=== PATIENT | male | born 1980 | race Two or more races ===

== ENCOUNTER → 2020-05-26 | Day surgery (SDC) | payer BC ==
[~2020-05-26] VITALS: Ht 175.3 cm; Wt 81.6 kg
[2020-05-26] VITALS (8 sets, daily range): BP systolic 116–153; BP diastolic 3–99
[~2020-05-26] MED LIST: Acetaminophen (Non formulary) 100 ML IV ONE; Atropine Sulfate 0.4mg/ml inj IVP PRN; Bacitracin Oint 15gm Tube TOPIC ONE; Betadine 10% Oint 30gm TOPIC ONE; Cocaine HCl 4% 4ml vial TOPIC ONE; DiphenhydrAMINE 50mg/ml Inj IVP PRN; Glycopyrrolate 0.2mg/ml 1ml Vial ONE; HYDROcodone/Acetamin 5/325 tab ORAL PRN; HYDROcodone/Acetamin 7.5/325 tab ORAL PRN; Hydromorphone 0.5mg/0.5ml inj IVP PRN; Kenalog-40 1ml Vial ONE; Ketorolac 30mg Inj IV PRN; LEXAPRO10 MG ORAL; LORazepam Inj 2mg/ml 1ml IV PRN; LR 1000ml 1,000 ML IVLG SCH; LR 1000ml ONE; Labetalol 5mg/ml 20ml vial IV PRN; Lidocaine 1% 10mg/ml/EPI 0.01mg/ml 30ml INJ ONE; Lidocaine 1% MPF 10mg/ml 5ml ONE; Lidocaine 1% Plain 30 ml INJ ONE; METOPROLOL SUCC50 MG ORAL; Meperidine 25mg/1ml Inj (FOR RIGORS ONLY) IV PRN; Metoclopramide 10mg/2ml Inj IVP PRN; Midazolam 2mg/2ml Inj IVP PRN; NS Irrig 1000ml IRRIG ONE; Neostigmine 1mg/ml 10ml Inj ONE; OMEPRAZOLE20 M2 ORAL; Oxymetazoline 0.05% Na Spray 30ml NASAL ONE; Rocuronium Bromide 50mg/5ml Inj IV ONE; Sodium Chloride 10ml vial INJ ONE; Sterile Water Irrig 1000ml IRRIG ONE; ceFAZolin sod 1 GM in NS 55 ML IVPB ONE; fentaNYL 100 mcg/2 mL IV ONE; fentaNYL 100 mcg/2 mL IV PRN; oxyCODONE HCL/Acetaminophen 5/325mg ORAL PRN; propofoL 1,000mg/100ml IV ONE
--- NOTE | 2020-05-26 10:53 | Pre-Procedure Note/Attestation ---
Pre-Procedure Note/Attestation Complete Prior to Procedure Planned Procedure: not applicable Procedure Narrative: nasal obstruction unresponsive to medication Indications for Procedure Pre-Operative Diagnosis: septal deviation, bilateral hypertrophied inferior turbinates, collapsed left internal valve Attestation I attest that I discussed the nature of the procedure; its benefits; risks and complications; and alternatives (and the risks and benefits of such alternatives), prior to the procedure, with the patient (or the patient's legal sales representative jewelry). I attest that, if there was a reasonable possibility of needing a blood transfusion, the patient (or the patient's legal sales representative jewelry) was given the [facility] standardized written summary, pursuant to the Faheem Emlyn Blood Safety Act ([place] Health and Safety Code # 1645, as amended). I attest that I re-evaluated the patient just prior to the surgery and that there has been no change in the patient's H&P, except as documented below: Satya Alexandra MD May 26, 2020 10:53
--- NOTE | 2020-05-26 11:41 | Anethesia Preoperative Eval ---
Anesthesia Pre-op PMH/ROS General Date of Evaluation: May 26, 2020 Time of Evaluation: 11:39 Anesthesiologist: Melodie ASA Score: ASA 2 Mallampati Score Class I : Soft palate, uvula, fauces, pillars visible Class II: Soft palate, uvula, fauces visible Class III: Soft palate, base of uvula visible Class IV: Only hard plate visible Mallampati Classification: Class I Surgeon: Ibrahima Diagnosis: Nasal Deformity Surgical Procedure: Septoplasty, SMR Turbinates Anesthesia History: none Family History: no anesthesia problems Allergies: Coded Allergies: No Known Allergies (Unverified , 05/20/20) Medications: see eMAR Patient NPO?: Yes Past Medical History Cardiovascular: Reports: HTN Gastrointestinal/Genitourinary: Reports: GERD Neurologic/Psychiatric: Reports: depression/anxiety PSxH Narrative: Septoplasty 2015 Anesthesia Pre-op Phys. Exam Physician Exam Last Vital Signs Date Time Temp Pulse Resp B/P (MAP) Pulse Ox O2 Delivery O2 Flow Rate FiO2 05/26/20 10:10 98.4 53 18 116/74 97 Room Air Constitutional: NAD Neurologic: CN 2-12 intact Cardiovascular: RRR Respiratory: CTA Gastrointestinal: S/NT/ND Airway Exam Mallampati Score: Class I MO: full ROM: full Teeth: intact Anesthesia Pre-op A/P Risk Assessment & Plan Assessment: ASA 2 Plan: GA, SED, GlideScope Status Change Before Surgery: No Pre-Antibiotics Dru Gram Ancef IV Given Within 1 Hr of Incision: Yes Time Given: 11:51 Van Sewell MD May 26, 2020 11:41
--- NOTE | 2020-05-26 12:36 | Immediate Post-Op Evaluation ---
Immediate Post-Op Evalulation Immediate Post-Op Evalulation Procedure: Septoplasty, SMR Turbinates Date of Evaluation: May 26, 2020 Time of Evaluation: 14:27 IV Fluids: 800 LR Blood Products: 0 Estimated Blood Loss: 50 Urinary Output: 0 Blood Pressure Systolic: 153 Blood Pressure Diastolic: 99 Pulse Rate: 69 Respiratory Rate: 16 O2 Sat by Pulse Oximetry: 100 Temperature (Fahrenheit): 98.1 Pain Score (1-10): 2 Nausea: No Vomiting: No Complications 0 Patient Status: awake, reacts, patent, extubated, none Hydration Status: adequate Dru Gram Ancef IV Given Within 1 Hr of Incision: Yes Time Given: 11:51 Van Sewell MD May 26, 2020 12:36
--- NOTE | 2020-05-26 12:37 | 48 Hour Post Anesthesia Eval ---
Post Anesthesia Evaluation Procedure: Septoplasty, SMR Turbinates Date of Evaluation: May 26, 2020 Time of Evaluation: 16:43 Blood Pressure Systolic: 119 0: 68 Pulse Rate: 54 Respiratory Rate: 18 Temperature (Fahrenheit): 98.2 O2 Sat by Pulse Oximetry: 100 Airway: patent Nausea: No Vomiting: No Pain Intensity: 2 Hydration Status: adequate Cardiopulmonary Status: Stable Mental Status/LOC: patient returned to baseline Follow-up Care/Observations: 0 Post-Anesthesia Complications: 0 Follow-up care needed: ready to discharge Van Sewell MD May 26, 2020 12:37
--- NOTE | 2020-05-26 14:14 | Brief Operative Note ---
Immediate Post Operative Note Operative Note Pre-op Diagnosis: septal deviation, bilateral hypertrophied inferior turbinates, collapsed left internal valve Procedure: septoplasty, bilateral inferior turbinectomies with intramural coagulation, reconstruction of collapsed left internal valve Post-op Diagnosis: same as pre-op Surgeon: Satya Alexandra M.D. Anesthesiologist: Paco Anesthesia: general Specimen: yes - septum Complications: none Condition: stable Fluids: ringers lactate Estimated Blood Loss: minimal Drains: none Packing: [email or web address] Implant(s) used?: No Satya Alexandra MD May 26, 2020 14:14
--- NOTE | 2020-05-27 09:15 | Operative Note - Dictated ---
DATE OF OPERATION: 05/26/2020 SURGEON: Satya Alexandra MD ANESTHESIOLOGIST: Van Sewell MD ANESTHESIA: General. PREOPERATIVE DIAGNOSES: 1. Septal deviation. 2. Bilateral hypertrophied inferior turbinates. 3. Collapsed left internal valve. POSTOPERATIVE DIAGNOSES: 1. Septal deviation. 2. Bilateral hypertrophied inferior turbinates. 3. Collapsed left internal valve. PROCEDURES: 1. Septoplasty. 2. Bilateral inferior turbinectomies with intramural coagulation. 3. Reconstruction of the collapsed left internal valve with rotation advancement flap. INDICATIONS FOR SURGERY: The patient is a 40-year-old male who complains of left greater than right nasal airway obstruction, unresponsive to medication. His examination revealed a severe left septal deviation, blocking 95% of left nasal airway with a large left maxillary crest spur. The septum is impacted against the left inferior turbinate. The right inferior turbinate is also significantly hypertrophied and there is a collapse of the left internal valve confirmed by a positive Elizabeth manuever and direct visualization. FINDINGS AT SURGERY: Revealed a severe convex left septal deviation pushing up against a hypertrophied inferior turbinate and associated with a large left maxillary crest spur. Both inferior turbinates were significantly hypertrophied and there is collapse of the left internal valve. DESCRIPTION OF PROCEDURE AND FINDINGS: The patient was brought to the operating room while premedicated and placed supine position on the operating room table. After he underwent satisfactory endotracheal intubation, he was given IV sedation. The patient was also given Ancef IV antibiotics. Afrin nasal spray was used to decongest the nasal cavity, and sterile Q-tip saturated Betadine solution was used to sterilize the intranasal cavity. Approximately 20 mL of 1% Xylocaine with 1:100,000 epinephrine were used to inject the nasal and septal frameworks. Less than 200 mg of cocaine were used on intranasal packing. Sterile scissors and KY jelly were used to trim the nasal hairs. The patient was then prepped and draped in the usual sterile fashion. After the packing had been removed a left inferior septal incision was then made with a 15 blade running into significant scar tissue. A left mucoperichondrial mucoperiosteal flap was eventually elevated and examination revealed a severe convexity of the septal cartilage and perpendicular plate of the ethmoid and vomer bone. The scar tissue was adherent to the underlying cartilage, and #15 blade had to be used to separate the overlying mucoperichondrium and periosteum from the underlying septum. An incision was made between the cartilage and bony septum, and a right mucoperiosteal flap was then elevated. That portion of overriding obstructing perpendicular plate of the ethmoid and vomer bone were incised in strips, from any attachments and removed from the field of operation. A similar procedure was performed on the septal cartilage maintaining good anterior and inferior support. A mallet and chisel were then used to remove the obstructing left maxillary crest spur. Bipolar intramural coagulation of both inferior turbinates was performed. An incision was made on the undersurface of both inferior turbinates and mucosa was stripped the underlying bone. The inferior turbinates were outfractured, and small piece of bone was removed from the pocket. My attention was then turned to the collapsed left internal valve. A #15 blade was used to make incision between the upper and lower lateral cartilage, carried over the dorsum to the septal angle. A #15 blade was also used to make an incision inferior and superior to the collapsed internal valve. These two incisions were then connected by a transverse incision The #15 blade was used to again to make sure that the incision was carried down thru the underlying mucoperichondrium. The entire areas were then freed from any attachments, and the entire complex was rotated anteriorly and laterally. The rotation flap was then sewn in place with interrupted sutures of 4-0 plain. Re-examination of the nasal airways now revealed good bilateral nasal airways. All blood was suctioned from nose and nasopharynx area. 4-0 plain was used to close the septal incision as well as splint the septum. Telfa coated with povidone ointment was secured in place with a suture of 3-0 silk, and the procedure was terminated. The patient tolerated the procedure well and left the operating room in satisfactory condition. Estimated blood loss was 30 mL. Sponge and needle counts were correct. Satya Alexandra M.D. DR: Cindy JOB#: [id number] CC: [email or web address]
== END | disposition home or self-care (01) ==
LOC: SUR 08:50
DX: J34.2 Deviated nasal septum (principal); J34.3 Hypertrophy of nasal turbinates; M95.0 Acquired deformity of nose; I10 Essential (primary) hypertension; K21.9 Gastro-esophageal reflux disease without esophagitis; F32.9 Major depressive disorder, single episode, unspecified; F41.9 Anxiety disorder, unspecified
CPT/HCPCS: 30140; 30465; 30520; 94003; C9046; J0131; J0690; J1100; J2001; J2250; J2405; J2704; J2710; J2765; J3010; J7120; U0002; 94150